=== PATIENT | female | born 1970 | race Caucasian/White ===

== ENCOUNTER 2019-12-15 16:14 | Inpatient (IN) | payer OTHER ==
--- NOTE | 2019-12-15 17:16 | HP ---
COWS - Scale Resting Pulse: 1= [place] 81-100 Sweatin=Flushed/Facial Moisture Restless Observation: 3= Extraneous Movement Pupil Size: 1= Pupils >than Normal Bone or Joint Aches: 2= Severe Diffuse Aches Runny Nose/ Eye Tearin= Runny Nose/Eyes GI Upset > 30mins: 2= Nausea/Diarrhea (diarrhea x 3) Tremor Observation: 2= Slight Tremor Visible Yawning Observation: 0= None Anxiety or Irritability: 2=Irritable/Anxious Goose Flesh Skin: 0=Smooth Skin COWS Score: 17 CIWA Score Nausea/Vomitin Muscle Tremors: 3 Anxiety: 3 Agitation: 4-Moderately Restless Paroxysmal Sweats: 2 Orientation: 0-Oriented Tacttile Disturbances: 0-None Auditory Disturbances: 0-None Visual Disturbances: 0-None Headache: 3-Moderate CIWA-Ar Total Score: 17 - Admission Criteria [facility]ASAS Guidelines: Admission for Medically Managed Detox: Requires at least one of the followin. CIWA greater than 12 2. Seizures within the past 24 hours 3. Delirium tremens within the past 24 hours 4. Hallucinations within the past 24 hours 5. Acute intervention needed for co occurring medical disorder 6. Acute intervention needed for co occurring psychiatric disorder 7. Severe withdrawal that cannot be handled at a lower level of care (continued vomiting, continued diarrhea, abnormal vital signs) requiring intravenous medication and/or fluids 8. Admission ROS [facility] Chief Complaint: Heroin, Alcohol and Benzo. withdrawal symptoms Allergies/Adverse Reactions: Allergies Allergy/AdvReac Type Severity Reaction Status Date / Time No Known Allergies Allergy Verified 12/15/19 18:10 History of Present Illness: 49 years old female with over 20 years of heroin dependence, 15 years of intermittent benzo. dependence (daily use in the last 6 months) and 14 years of alcohol dependence is seeking admission to detox. Patient reports a year of longest period of sobriety. She has medical history of chronic back pain, GERD, Raynaud disease, scoliosis and psych. history of anxiety, depression and PTSD. She denies suicide attempt/ suicidal ideation at this time. 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 She reports that her last detox was at [facility] [place] Data Detail Level: Extended View Confidential Drug Utilization Report Search Terms: magnolia chinchilla, 1970 Search Date: 12/15/2019 17:11:14 PM The Drug Utilization Report below displays all of the controlled substance prescriptions, if any, that your patient has filled in the last twelve months. The information displayed on this report is compiled from pharmacy submissions to the Department, and accurately reflects the information as submitted by the pharmacies. There are no results for the search terms that you entered. Exam Limitations: No Limitations - Ebola screening Have you traveled outside of the country in the last 21 days: No Have you had contact with anyone from an Ebola affected area: No Do you have a fever: No - Review of Systems Constitutional: Chills, Loss of Appetite, Malaise, Night Sweats, Changes in sleep EENT: reports: Nose Congestion, Other (difficulty hearing - left ear) Respiratory: reports: No Symptoms reported Cardiac: reports: No Symptoms Reported GI: reports: No Symptoms Reported : reports: No Symptoms Reported Musculoskeletal: reports: Back Pain, Muscle Pain Integumentary: reports: Dryness, Flushing Neuro: reports: Headache, Tremors Endocrine: reports: No Symptoms Reported Hematology: reports: No Symptoms Reported Psychiatric: reports: Mood/Affect Appropiate, Orientated x3, Anxious, Depressed Other Systems: Reviewed and Negative Patient History - Patient Medical History Hx Anemia: No Hx Asthma: No Hx Chronic Obstructive Pulmonary Disease (COPD): No Hx Cancer: No Hx Cardiac Disorders: No Hx Congestive Heart Failure: No Hx Hypertension: No Hx Hypercholesterolemia: No Hx Pacemaker: No HX Cerebrovascular Accident: No Hx Seizures: Yes (Alcohol related seizures. Not on medications) Hx Dementia: No Hx Diabetes: No Hx Gastrointestinal Disorders: Yes (GERD) Hx Liver Disease: No Hx Genitourinary Disorders: No Hx Sexually Transmitted Disorders: No Hx Renal Disease (ESRD): No Hx Thyroid Disease: No Hx Human Immunodeficiency Virus (HIV): No (Negative - requests testing) Hx Hepatitis C: No Hx Depression: Yes Hx Suicide Attempt: No (Denies suicide attempt/suicidal ideation at this time) Hx Bipolar Disorder: No Hx Schizophrenia: No Other Medical History: Raynaud's disease, chronic back pain - Patient Surgical History Past Surgical History: No - PPD History Previous Implant?: Yes Documented Results: Negative w/o proof Implanted On Prior [facility] Admission?: No PPD to be Administered?: Yes - Reproductive History Patient is a Female of Child Bearing Age (11 -55 yrs old): Yes Last Menstrual Period: 11/25/19 - Smoking Cessation Smoking history: Current every day smoker Have you smoked in the past 12 months: Yes Aproximately how many cigarettes per day: 20 Hx Chewing Tobacco Use: Yes Initiated information on smoking cessation: No 'Breaking Loose' booklet given: 12/15/19 - Substance & Tx. History Hx Alcohol Use: Yes Hx Substance Use: Yes Substance Use Type: Alcohol, Cocaine, Heroin, Marijuana, Opiates Hx Substance Use [place]: [place] [place] - Substances abused Heroin Substance route: Injection Frequency: Daily Amount used: 20 bags Age of first use: 25 Date of last use: 12/14/19 Alprazolam (Xanax) Substance route: Oral Frequency: Daily Amount used: 4 to 8 mg Age of first use: 34 Date of last use: 12/14/19 Alcohol Substance route: Oral Frequency: Daily Amount used: 1 to 2 pints of new. Age of first use: 13 Date of last use: 12/15/19 Admission Physical Exam [facility] - Physical General Appearance: Yes: Moderate Distress, Tremorous, Irritable, Anxious HEENTM: Yes: Nasal Congestion, Other (difficulty hearing- left ear) Respiratory: Yes: Lungs Clear, Normal Breath Sounds, No Respiratory Distress Neck: Yes: Within Normal Limits Breast: Yes: Breast Exam Deferred Cardiology: Yes: Tachycardia Abdominal: Yes: Normal Bowel Sounds, Soft Genitourinary: Yes: Within Normal Limits Back: Yes: Normal Inspection Musculoskeletal: Yes: Within Normal Limits Extremities: Yes: Normal Inspection Neurological: Yes: Within Normal Limits Integumentary: Yes: Clammy Lymphatic: Yes: Within Normal Limits - Diagnostic (1) Alcohol dependence with withdrawal, uncomplicated Current Visit: Yes Status: Acute (2) Raynauds disease Current Visit: Yes Status: Chronic Qualifiers: Raynaud?s-associated gangrene presence: without gangrene Qualified Code(s) : I73.00 - Raynaud's syndrome without gangrene (3) Left ear hearing loss Current Visit: Yes Status: Chronic Qualifiers: Hearing loss type: unspecified Qualified Code(s): H91.92 - Unspecified hearing loss, left ear (4) Alcohol related seizure Current Visit: Yes Status: Chronic (5) Depression Current Visit: Yes Status: Chronic Qualifiers: Depression Type: unspecified Qualified Code(s): F32.9 - Major depressive disorder, single episode, unspecified (6) Anxiety Current Visit: Yes Status: Chronic (7) Chronic back pain Current Visit: Yes Status: Chronic Qualifiers: Back pain location: back pain in unspecified location Back pain laterality : unspecified Qualified Code(s): M54.9 - Dorsalgia, unspecified; G89.29 - Other chronic pain (8) Scoliosis Current Visit: Yes Status: Chronic Qualifiers: Scoliosis type: unspecified scoliosis Spinal region: unspecified Qualified Code(s): M41.9 - Scoliosis, unspecified Cleared for Admission S - Detox or Rehab [facility] Level of Care: Medically Managed Detox Regimen/Protocol: Methadone/Valium Claeared for Rehab Admission: No Inpatient Rehab Admission - Rehab Decision to Admit Inpatient rehab admission?: No
--- NOTE | 2019-12-15 17:16 | BHS.RME ---
Substance Use & Tx History - Last Treatment Where was last treatment: Detox COWS - Scale Resting Pulse: 1= [place] 81-100 Sweatin=Flushed/Facial Moisture Restless Observation: 3= Extraneous Movement Pupil Size: 1= Pupils >than Normal Bone or Joint Aches: 2= Severe Diffuse Aches Runny Nose/ Eye Tearin= Runny Nose/Eyes GI Upset > 30mins: 2= Nausea/Diarrhea (diarrhea x 3) Tremor Observation: 2= Slight Tremor Visible Yawning Observation: 0= None Anxiety or Irritability: 2=Irritable/Anxious Goose Flesh Skin: 0=Smooth Skin COWS Score: 17 CIWA Nausea/Vomitin Muscle Tremors: 3 Anxiety: 3 Agitation: 4-Moderately Restless Paroxysmal Sweats: 2 Orientation: 0-Oriented Tacttile Disturbances: 0-None Auditory Disturbances: 0-None Visual Disturbances: 0-None Headache: 3-Moderate CIWA-Ar Total Score: 17
[2019-12-15 18:23] VITALS: BMI 22.1
[2019-12-15] MEDS ORDERED: MELATONIN 5 MG TABLETS PO PRN (18:55)
[2019-12-15] MEDS ORDERED: NICOTINE POLACRILEX 2 MG GUM BUC PRN (18:55)
[2019-12-15] MEDS ORDERED: BISMUTH SUBSALICYLATE 524 MG/30 ML UD PO PRN (18:55)
[2019-12-15] MEDS ORDERED: MAG HYDROX/AL HYDROX/SIMETH 30 ML UNIT-DOSE CUP PO PRN (18:55)
[2019-12-15] MEDS ORDERED: ACETAMINOPHEN 325 MG TABLET (FP) PO PRN ×2 (18:55)
[2019-12-15] MEDS ORDERED: MAGNESIUM CITRATE 300 ML BOTTLE PO PRN (18:55)
[2019-12-15] MEDS ORDERED: MENTHOL/PHENOL 1 EACH UD MM PRN (18:55)
[2019-12-15] MEDS ORDERED: MAGNESIUM HYDROX 2400MG/30ML ORAL SUSPENSION 30 ML CUP PO PRN (18:55)
[2019-12-15] MEDS ORDERED: METHADONE HCL 10 MG TABLET (FOR DETOX USE ONLY) PO ONE (19:30)
[2019-12-15] MEDS: cloNIDine HCL 0.1 MG TABLET PO PRN (20:33)
[2019-12-15] MEDS: diazePAM 5 MG TABLET PO SCH (22:11)
[2019-12-15] MEDS: THIAMINE HCL 100 MG TABLET (FP) PO SCH (22:11)
[2019-12-15] MEDS: CARBAMIDE PEROXIDE 6.5% OTIC 15 ML BOTTLE AS SCH (22:13)
[2019-12-16] MEDS: diazePAM 5 MG TABLET PO PRN ×2 (03:00→15:34)
[2019-12-16] MEDS: diazePAM 5 MG TABLET PO SCH ×3 (07:05→22:42)
[2019-12-16] MEDS ORDERED: METHADONE HCL 5 MG TABLET (FOR DETOX USE ONLY) ONE (09:05)
[2019-12-16] MEDS ORDERED: METHADONE HCL 10 MG TABLET (FOR DETOX USE ONLY) ONE (09:06)
[2019-12-16] MEDS ORDERED: METHADONE (DETOX) 20 MG, METHADONE (DETOX) 5 MG PO ONE (10:00)
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
[2019-12-16] MEDS: CARBAMIDE PEROXIDE 6.5% OTIC 15 ML BOTTLE AS SCH ×2 (10:26→22:42)
[2019-12-16] MEDS: NICOTINE 21 MG/24 HOURS TOPICAL PATCH TD SCH (10:27)
[2019-12-16] MEDS: PRENATAL VITAMINS W/ FOLIC ACID TABLET (FP) PO SCH (10:28)
[2019-12-16 11:19] LABS: HEMATOCRIT 33.4 % (32.4-45.2); HEMOGLOBIN 10.9 GM/dL (10.7-15.3); MCH 26.1 pg (25.7-33.7); MCHC 32.7 g/dl (32.0-36.0); MEAN CELL VOLUME 79.8 fl (80-96); MEAN PLT VOLUME 8.9 fl (7.5-11.1); PLATELET COUNT 297 K/MM3 (134-434); RBC 4.18 M/mm3 (3.60-5.2); RDW 16.8 % (11.6-15.6); WHITE BLOOD COUNT 10.3 K/mm3 (4.0-10.0)
[2019-12-16 11:22] LABS: ALBUMIN 3.3 g/dl (3.4-5.0); BILIRUBIN,TOTAL 0.2 mg/dL (0.2-1); CALCIUM 7.9 mg/dL (8.5-10.1); CREATININE 0.7 mg/dL (0.55-1.3); POTASSIUM 4.3 mmol/L (3.5-5.1)
--- NOTE | 2019-12-16 12:52 | EKG ---
Test Reason : Blood Pressure : / mmHG Vent. Rate : 076 BPM Atrial Rate : 076 BPM P-R Int : 152 ms QRS Dur : 086 ms QT Int : 388 ms P-R-T Axes : 072 079 058 degrees QTc Int : 436 ms NORMAL SINUS RHYTHM NORMAL ECG NO PREVIOUS ECGS AVAILABLE Confirmed by BEKA DYKES MD ([id number]) on 12/16/2019 12:52:17 PM Referred By: Confirmed By:BEKA DYKES MD
[2019-12-16] MEDS: IBUPROFEN 400 MG TABLET (FP) PO PRN ×2 (15:31→22:58)
[2019-12-16] MEDS: cloNIDine HCL 0.1 MG TABLET PO PRN (18:46)
[2019-12-16] MEDS: METHOCARBAMOL 500 MG TABLET PO PRN (22:42)
[2019-12-16] MEDS: THIAMINE HCL 100 MG TABLET (FP) PO SCH (22:42)
[2019-12-16] MEDS: SUVOREXANT 10 MG TABLET PO PRN (22:58)
[2019-12-17] MEDS: diazePAM 5 MG TABLET PO PRN ×4 (03:35→23:19)
[2019-12-17] MEDS: diazePAM 5 MG TABLET PO SCH ×2 (05:48→18:14)
[2019-12-17] MEDS ORDERED: METHADONE HCL 10 MG TABLET (FOR DETOX USE ONLY) PO ONE (10:00)
[2019-12-17] MEDS: METHOCARBAMOL 500 MG TABLET PO PRN (10:38)
[2019-12-17] MEDS: CARBAMIDE PEROXIDE 6.5% OTIC 15 ML BOTTLE AS SCH ×2 (10:38→22:24)
[2019-12-17] MEDS: PRENATAL VITAMINS W/ FOLIC ACID TABLET (FP) PO SCH (10:39)
[2019-12-17] MEDS: NICOTINE 21 MG/24 HOURS TOPICAL PATCH TD SCH (10:39)
--- NOTE | 2019-12-17 15:13 | PN ---
[facility] CIWA - CIWA Score Nausea/Vomitin-No Nausea/No Vomiting Muscle Tremors: 4-Moderate,w/Arms Extend Anxiety: 5 Agitation: 4-Moderately Restless Paroxysmal Sweats: No Perspiration Orientation: 0-Oriented Tacttile Disturbances: 0-None Auditory Disturbances: 0-None Visual Disturbances: 0-None Headache: 0-None Present CIWA-Ar Total Score: 13 S COWS - Scale Resting Pulse: 0= [place] 80 or Below Sweatin= No chills or Flushing Restless Observation: 1= Difficult to Sit Still Pupil Size: 0= Normal to Room Light Bone or Joint Aches: 1= Mild Discomfort Runny Nose/ Eye Tearin= None GI Upset > 30mins: 0= None Tremor Observation of Outstretched Hands: 2= Slight Tremor Visible Yawning Observation: 1= 1-2x During Session Anxiety or Irritability: 2=Irritable/Anxious Goose Flesh Skin: 3=Piloerection COWS Score: 10 S Progress Note (SOAP) Subjective: Anxious, Tremors, Interrupted Sleep, Body Aches. Objective: PATIENT A & O X 3, OBSERVED AMBULATING ON DETOX UNIT UNASSISTED. IN NO ACUTE DISTRESS. 12/17/19 15:11 Vital Signs Temperature 99.0 F 12/17/19 08:39 Pulse Rate 73 12/17/19 08:39 Respiratory Rate 16 12/17/19 08:39 Blood Pressure 108/63 12/17/19 08:39 O2 Sat by Pulse Oximetry (%) Laboratory Tests 12/16/19 12/16/19 12/16/19 08:00 08:00 08:00 WBC 10.3 H RBC 4.18 Hgb 10.9 Hct 33.4 MCV 79.8 L MCH 26.1 MCHC 32.7 RDW 16.8 H Plt Count 297 MPV 8.9 Sodium 140 Potassium 4.3 Chloride 108 H Carbon Dioxide 27 Anion Gap 5 L BUN 16.0 Creatinine 0.7 Est GFR (CKD-EPI)AfAm 117.09 Est GFR (CKD-EPI)NonAf 101.02 Random Glucose 88 Calcium 7.9 L Total Bilirubin 0.2 AST 16 ALT 17 Alkaline Phosphatase 104 Total Protein 7.0 Albumin 3.3 L RPR Titer Nonreactive LABS NOTED. Assessment: 12/17/19 15:11 WITHDRAWAL SYMPTOMS. HYPOCALCEMIA. Plan: CONTINUE DETOX. OSCAL, 500 MG ORALLY BID FOR LOW CA LEVEL NOTED ON DETOX ADMISSION LABORATORY ASSESSMENT.
[2019-12-17] MEDS: cloNIDine HCL 0.1 MG TABLET PO PRN (20:13)
[2019-12-17] MEDS ORDERED: CALCIUM 500MG/VIT-D 200 UNITS COMBO TABLET (FP) PO SCH (22:00)
[2019-12-17] MEDS: THIAMINE HCL 100 MG TABLET (FP) PO SCH (22:25)
[2019-12-17] MEDS: SUVOREXANT 10 MG TABLET PO PRN (22:28)
[2019-12-18] MEDS ORDERED: diazePAM 5 MG TABLET PO ONE (06:00)
[2019-12-18] MEDS: IBUPROFEN 400 MG TABLET (FP) PO PRN (07:41)
[2019-12-18 09:30] VITALS: BP 121/52; PULSE 103; TEMP 97.8
[2019-12-18] MEDS ORDERED: METHADONE (DETOX) 10 MG, METHADONE (DETOX) 5 MG PO ONE (10:00)
--- NOTE | 2019-12-18 16:49 | DS ---
[facility] Detox Discharge Summary Admission Date: 12/15/19 Discharge Date: 12/18/19 - History Present History: Alcohol Dependence, Opioid Dependence, Sedative Dependence Additional Comments: Patient demanded to leave AMA because her so called boyfriend (Poncho Hopper) was discharged today and she wanted him to stay. Patient left despite encouragement from staff to complete detox. Patient was loud, irritable and using lots of profanity towards staff. Instructed to call [phone] NED if sick or withdrawal sxs and to see her PCP within 3 days. Patient left the unit in stable condition. Pertinent Past History: GERD Chronic back pain Alcohol related seizure disorder Nicotine dependence - Physical Exam Results Vital Signs: Vital Signs Temperature 97.8 F 12/18/19 08:17 Pulse Rate 103 H 12/18/19 08:17 Respiratory Rate 19 12/18/19 08:17 Blood Pressure 121/52 L 12/18/19 08:17 O2 Sat by Pulse Oximetry (%) Pertinent Admission Physical Exam Findings: Withdrawal sxs Laboratory Tests 12/16/19 12/16/19 12/16/19 08:00 08:00 08:00 WBC 10.3 H RBC 4.18 Hgb 10.9 Hct 33.4 MCV 79.8 L MCH 26.1 MCHC 32.7 RDW 16.8 H Plt Count 297 MPV 8.9 Sodium 140 Potassium 4.3 Chloride 108 H Carbon Dioxide 27 Anion Gap 5 L BUN 16.0 Creatinine 0.7 Est GFR (CKD-EPI)AfAm 117.09 Est GFR (CKD-EPI)NonAf 101.02 Random Glucose 88 Calcium 7.9 L Total Bilirubin 0.2 AST 16 ALT 17 Alkaline Phosphatase 104 Total Protein 7.0 Albumin 3.3 L RPR Titer Nonreactive HIV 1&2 Antibody Screen HIV P24 Antigen 12/18/19 05:50 WBC RBC Hgb Hct MCV MCH MCHC RDW Plt Count MPV Sodium Potassium Chloride Carbon Dioxide Anion Gap BUN Creatinine Est GFR (CKD-EPI)AfAm Est GFR (CKD-EPI)NonAf Random Glucose Calcium Total Bilirubin AST ALT Alkaline Phosphatase Total Protein Albumin RPR Titer HIV 1&2 Antibody Screen Negative HIV P24 Antigen Negative Labs reviewed: instructed to follow up with PCP for all abnormal lab results - Medication Discharge Medications: Ambulatory Orders NK [No Known Home Medication] 12/15/19 - Diagnosis (1) GERD (gastroesophageal reflux disease) Current Visit: Yes Status: Chronic (2) Alcohol dependence with withdrawal, uncomplicated Current Visit: Yes Status: Acute (3) Sedative, hypnotic or anxiolytic dependence, uncomplicated Current Visit: Yes Status: Acute (4) Uncomplicated opioid dependence Current Visit: Yes Status: Acute (5) Anxiety Current Visit: Yes Status: Chronic (6) Chronic back pain Current Visit: Yes Status: Chronic Qualifiers: Back pain location: back pain in unspecified location Back pain laterality : unspecified Qualified Code(s): M54.9 - Dorsalgia, unspecified; G89.29 - Other chronic pain (7) Depression Current Visit: Yes Status: Chronic Qualifiers: Depression Type: unspecified Qualified Code(s): F32.9 - Major depressive disorder, single episode, unspecified (8) Nicotine dependence Current Visit: Yes Status: Chronic (9) PTSD (post-traumatic stress disorder) Current Visit: Yes Status: Chronic - AMA Did Patient Leave Against Medical Advice: Yes (Instructed to call 911 NED if sick/withdrawal sxs)
[2019-12-19] MEDS ORDERED: METHADONE HCL 10 MG TABLET (FOR DETOX USE ONLY) PO ONE (10:00)
[2019-12-20] MEDS ORDERED: METHADONE HCL 5 MG TABLET (FOR DETOX USE ONLY) PO ONE (06:00)
== END 2019-12-18 09:23 | disposition left against medical advice (07) | DRG 770 ==
LOC: YASAS 16:14 → Y6N 19:12
PROVIDERS: ADMIT Allergy & Immunology; ATTEND Allergy & Immunology
PROC: HZ2ZZZZ Detoxification Services for Substance Abuse Treatment (ICD-10-PCS; principal; 2019-12-15)
DX: F10.230 Alcohol dependence with withdrawal, uncomplicated (principal); F11.20 Opioid dependence, uncomplicated; F13.230 Sedative, hypnotic or anxiolytic dependence with withdrawal, uncomplicated; F17.210 Nicotine dependence, cigarettes, uncomplicated; F19.24 Other psychoactive substance dependence with psychoactive substance-induced mood disorder; F19.282 Other psychoactive substance dependence with psychoactive substance-induced sleep disorder; F41.9 Anxiety disorder, unspecified; F32.9 Major depressive disorder, single episode, unspecified; F43.10 Post-traumatic stress disorder, unspecified; K21.9 Gastro-esophageal reflux disease without esophagitis; M54.89 Other dorsalgia; G40.509 Epileptic seizures related to external causes, not intractable, without status epilepticus; H91.92 Unspecified hearing loss, left ear; E83.51 Hypocalcemia; I73.00 Raynaud's syndrome without gangrene; M41.9 Scoliosis, unspecified
CPT/HCPCS: 36415; 80053; 81025; 85027; 86593; 86803; 87389; 93005; 93010; J0735

== ENCOUNTER 2020-06-28 15:29 | Inpatient (IN) | payer OTHER ==
--- NOTE | 2020-06-28 16:04 | BHS.RME ---
Substance Use & Tx History - Substance Use History Alcohol Substance amount: 2-3 bottles wine Frequency of use: Daily Substance route: Oral Date of Last Use: 06/28/20 Heroin Substance amount: 15-20 bags Frequency of use: Daily Substance route: Injection (ex: intravenous or skin popping) Date of Last Use: 06/27/20 Cocaine-Crack Substance amount: $30 Frequency of use: Daily Substance route: Smoking Date of Last Use: 06/27/20 Xanax Substance amount: 2mg - 3 tabs Frequency of use: Daily Substance route: Oral Date of Last Use: 06/27/20 Nicotine Substance amount: 1/2 pack Frequency of use: Daily Substance route: Smoking Date of Last Use: 06/28/20 Physical/Psych/Mental Status - Behavior General Behavior: Increased activity (restlessness, agitation) Eye Contact: Normal - Cooperativeness Cooperativeness: Cooperative - Thinking Thought Processes: Tight, Logical, Goal Directed - Physical Health Problems Is patient presently having any pain?: No Does patient presently have any injuries (include location): No Does patient currently have a fever: No Is patient : No COWS - Scale Resting Pulse: 2= [place] [id number] Sweatin= Chills/Flushing Restless Observation: 3= Extraneous Movement Pupil Size: 1= Pupils >than Normal Bone or Joint Aches: 2= Severe Diffuse Aches Runny Nose/ Eye Tearin= Runny Nose/Eyes GI Upset > 30mins: 1= Stomach Cramp Tremor Observation: 1= Tremor [place], Not Seen Yawning Observation: 1= 1-2x During Session Anxiety or Irritability: 1=Feels Anxious/Irritable Goose Flesh Skin: 3=Piloerection COWS Score: 18 CIWA Nausea/Vomitin-No Nausea/No Vomiting Muscle Tremors: 3 Anxiety: 4-Mod. Anxious/Guarded Agitation: 4-Moderately Restless Paroxysmal Sweats: 4-Forehead w/Sweat Beads Orientation: 0-Oriented Tacttile Disturbances: 0-None Auditory Disturbances: 7-Continuous Hallucination Visual Disturbances: 1-Very Mild Sensitivity Headache: 1-Very Mild CIWA-Ar Total Score: 24
[2020-06-28 17:50] VITALS: BMI 25.1
--- NOTE | 2020-06-28 18:35 | HP ---
COWS - Scale Resting Pulse: 2= [place] 101-120 Sweatin=Flushed/Facial Moisture Restless Observation: 1= Difficult to Sit Still Pupil Size: 1= Pupils >than Normal Bone or Joint Aches: 4=Acute Joint/Muscle Pain Runny Nose/ Eye Tearin= Runny Nose/Eyes GI Upset > 30mins: 1= Stomach Cramp Tremor Observation: 2= Slight Tremor Visible Yawning Observation: 1= 1-2x During Session Anxiety or Irritability: 2=Irritable/Anxious Goose Flesh Skin: 3=Piloerection COWS Score: 21 CIWA Score Nausea/Vomitin Muscle Tremors: 3 Anxiety: 4-Mod. Anxious/Guarded Agitation: 4-Moderately Restless Paroxysmal Sweats: 2 Orientation: 0-Oriented Tacttile Disturbances: 0-None Auditory Disturbances: 0-None Visual Disturbances: 1-Very Mild Sensitivity Headache: 2-Mild CIWA-Ar Total Score: 18 - Admission Criteria OASAS Guidelines: Admission for Medically Managed Detox: Requires at least one of the followin. CIWA greater than 12 2. Seizures within the past 24 hours 3. Delirium tremens within the past 24 hours 4. Hallucinations within the past 24 hours 5. Acute intervention needed for co occurring medical disorder 6. Acute intervention needed for co occurring psychiatric disorder 7. Severe withdrawal that cannot be handled at a lower level of care (continued vomiting, continued diarrhea, abnormal vital signs) requiring intravenous medication and/or fluids 8. Admitting History and Physical - Past Medical History ...LMP: 11/25/19 - Smoking History Smoking history: Current every day smoker Have you smoked in the past 12 months: Yes Aproximately how many cigarettes per day: 20 - Alcohol/Substance Use Hx Alcohol Use: Yes Admission [facility] Chief Complaint: Alcohol and heroin withdrawal symptoms Allergies/Adverse Reactions: Allergies Allergy/AdvReac Type Severity Reaction Status Date / Time No Known Allergies Allergy Verified 06/28/20 18:53 History of Present Illness: 49 years old female with over 20 years of heroin dependence, 15 years of intermittent benzo. dependence (daily use in the last 6 months) and 14 years of alcohol dependence is seeking admission to detox. Patient's last admission was for the period 12/15/2019 - 12/18/2019 and she had left against medical advice. Patient promised to complete this admission and signed the treatment consent. She uses 2 bottles of wine, 15-20 bags of heroin and 6mg Xanax daily. She has medical history of chronic back pain, GERD, Raynaud's disease, scoliosis and psych. history of anxiety, depression and PTSD. She denies suicide attempt / suicidal ideation at this time. 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 She is unemployed, homeless and denies legal issues. Exam Limitations: Clinical Condition (acute withdrawal symptoms) - Ebola screening Have you traveled outside of the country in the last 21 days: No Have you had contact with anyone from an Ebola affected area: No Have you been sick,other than usual withdrawal symptoms: No Do you have a fever: No - Review of Systems Constitutional: Chills, Loss of Appetite, Malaise, Night Sweats, Changes in sleep EENT: reports: Other (runny nose) Respiratory: reports: No Symptoms reported Cardiac: reports: No Symptoms Reported GI: reports: Poor Appetite, Poor Fluid Intake, Abdominal cramping : reports: No Symptoms Reported Musculoskeletal: reports: Back Pain Integumentary: reports: Bruising (both legs), Dryness, Flushing Neuro: reports: Tremors Endocrine: reports: No Symptoms Reported Hematology: reports: No Symptoms Reported Psychiatric: reports: Orientated x3, Agitated, Anxious, Depressed Other Systems: Reviewed and Negative Patient History - Patient Medical History Hx Anemia: No Hx Asthma: No Hx Chronic Obstructive Pulmonary Disease (COPD): No Hx Cancer: No Hx Cardiac Disorders: No Hx Congestive Heart Failure: No Hx Hypertension: No Hx Hypercholesterolemia: No Hx Pacemaker: No HX Cerebrovascular Accident: No Hx Seizures: Yes (Alcohol related seizures. Not on medications) Hx Dementia: No Hx Diabetes: No Hx Gastrointestinal Disorders: Yes (GERD) Hx Liver Disease: No Hx Genitourinary Disorders: No Hx Sexually Transmitted Disorders: No Hx Renal Disease (ESRD): No Hx Thyroid Disease: No Hx Human Immunodeficiency Virus (HIV): No (Negative - requests testing) Hx Hepatitis C: No Hx Depression: Yes (+ Anxiety +PTSD) Hx Suicide Attempt: No (Denies suicide attempt/suicidal ideation at this time) Hx Bipolar Disorder: No Hx Schizophrenia: No Other Medical History: Chronic back pain, RAynaud's disease, scoliosis - Patient Surgical History Past Surgical History: No Hx Neurologic Surgery: No Hx Cataract Extraction: No Hx Cardiac Surgery: No Hx Lung Surgery: No Hx Abdominal Surgery: No Hx Appendectomy: No Hx Cholecystectomy: No Hx Genitourinary Surgery: No Hx Orthopedic Surgery: No Other Surgical History: tonsillectomy/adenoidectomy 11 y/o, ear surgery 7/t0 7 y/o Anesthesia Reaction: No - PPD History Previous Implant?: Yes Documented Results: Positive w/proof Implanted On Prior [facility] Admission?: Yes Date: 12/17/19 PPD to be Administered?: No - Reproductive History Patient is a Female of Child Bearing Age (11 -55 yrs old): No Last Menstrual Period: 06/14/20 Patient : No - Smoking Cessation Smoking history: Current every day smoker Have you smoked in the past 12 months: Yes Aproximately how many cigarettes per day: 10 Hx Chewing Tobacco Use: No Initiated information on smoking cessation: Yes 'Breaking Loose' booklet given: 06/28/20 - Substance & Tx. History Hx Alcohol Use: Yes Hx Substance Use: Yes Substance Use Type: Alcohol, Cocaine, Heroin, Opiates, Tranquilizers Hx Substance Use Treatment: No ([facility]) - Substances abused Alcohol Substance route: Oral Frequency: Daily Amount used: 2 big bottles of wine Age of first use: 13 Date of last use: 06/28/20 Heroin Substance route: Injection Frequency: Daily Amount used: 15-20 bags Age of first use: 25 Date of last use: 06/27/20 Alprazolam (Xanax) Substance route: Oral Frequency: Daily Amount used: 6mg Age of first use: 34 Date of last use: 06/27/20 Admission Physical Exam S - Vital Signs Vital Signs: Vital Signs - 24 hr 06/28/20 17:48 Temperature 97.7 F Pulse Rate 102 H Respiratory 17 Rate Blood Pressure 120/83 - Physical General Appearance: Yes: Severe Distress, Tremorous, Irritable, Sweating, Anxious HEENTM: Yes: Within Normal Limits Respiratory: Yes: Lungs Clear, Normal Breath Sounds, No Respiratory Distress Neck: Yes: Within Normal Limits Breast: Yes: Breast Exam Deferred Cardiology: Yes: Tachycardia Abdominal: Yes: Normal Bowel Sounds Back: Yes: Normal Inspection Musculoskeletal: Yes: Back pain, Muscle Pain Extremities: Yes: Tremors, Swelling (bilateral hands secondary to Raynaud's disease), Erythema (bilateral hands) Neurological: Yes: Within Normal Limits Integumentary: Yes: Erythema, Track Castillo (bilateral legs, bilateral hands) Lymphatic: Yes: Within Normal Limits - Diagnostic (1) Opioid dependence with withdrawal Current Visit: Yes Status: Acute (2) Alcohol dependence with withdrawal, uncomplicated Current Visit: Yes Status: Acute (3) Sedative, hypnotic or anxiolytic dependence, uncomplicated Current Visit: Yes Status: Acute (4) Anxiety Current Visit: Yes Status: Chronic (5) Chronic back pain Current Visit: Yes Status: Chronic Qualifiers: Back pain laterality: unspecified (6) Depression Current Visit: Yes Status: Chronic Qualifiers: Depression Type: unspecified Qualified Code(s): F32.9 - Major depressive disorder, single episode, unspecified (7) GERD (gastroesophageal reflux disease) Current Visit: Yes Status: Chronic (8) Nicotine dependence Current Visit: Yes Status: Chronic (9) PTSD (post-traumatic stress disorder) Current Visit: Yes Status: Chronic (10) Raynauds disease Current Visit: Yes Status: Chronic Qualifiers: Raynaud?s-associated gangrene presence: without gangrene Qualified Code(s): I73.00 - Raynaud's syndrome without gangrene (11) Scoliosis Current Visit: Yes Status: Chronic Qualifiers: Scoliosis type: unspecified scoliosis Spinal region: unspecified Qualified Code(s): M41.9 - Scoliosis, unspecified (12) Alcohol related seizure Current Visit: Yes Status: Chronic Cleared for Admission S - Detox or Rehab [facility] Level of Care: Medically Managed Detox Regimen/Protocol: Methadone/Librium Claeared for Rehab Admission: Yes Breathalyzer - Breathalyzer Breathalyzer: 0.047 Urine Drug Screen - Test Device Lot number: [id number] Expiration date: 05/22/22 - Control Is test valid?: Yes - Results Drug screen NEGATIVE: No Urine drug screen results: JACKY-Cocaine, FEN-Fentanyl, MOP-Opiates, MTD-Met hadone, BZO-Benzodiazepines Inpatient Rehab Admission - Rehab Decision to Admit Inpatient rehab admission?: No
[2020-06-28] MEDS ORDERED: ACETAMINOPHEN 325 MG TABLET (FP) PO PRN ×2 (18:55)
[2020-06-28] MEDS ORDERED: ONDANSETRON *ODT* 4 MG TABLET SL PRN (18:55)
[2020-06-28] MEDS ORDERED: MAG HYDROX/AL HYDROX/SIMETH 30 ML UNIT-DOSE CUP PO PRN (18:55)
[2020-06-28] MEDS ORDERED: BISMUTH SUBSALICYLATE 524 MG/30 ML UD PO PRN (18:55)
[2020-06-28] MEDS ORDERED: chlordiazePOXIDE HCL 25 MG CAPSULE PO PRN (18:55)
[2020-06-28] MEDS ORDERED: IBUPROFEN 400 MG TABLET (FP) PO PRN (18:55)
[2020-06-28] MEDS ORDERED: MAGNESIUM HYDROX 2400MG/30ML ORAL SUSPENSION 30 ML CUP PO PRN (18:55)
[2020-06-28] MEDS ORDERED: MENTHOL/PHENOL 1 EACH UD MM PRN (18:55)
[2020-06-28] MEDS ORDERED: MAGNESIUM CITRATE 300 ML BOTTLE PO PRN (18:55)
[2020-06-28] MEDS ORDERED: NICOTINE POLACRILEX 2 MG GUM BUC PRN (18:55)
[2020-06-28] MEDS ORDERED: METHADONE HCL 10 MG TABLET (FOR DETOX USE ONLY) PO ONE (19:30)
[2020-06-28] MEDS: cloNIDine HCL 0.1 MG TABLET PO PRN (20:44)
[2020-06-28] MEDS: chlordiazePOXIDE HCL 25 MG CAPSULE PO SCH ×2 (22:54→23:14)
[2020-06-28] MEDS: THIAMINE HCL 100 MG TABLET (FP) PO SCH ×2 (22:54→23:17)
[2020-06-28] MEDS ORDERED: MASKS NR ONE (23:11)
[2020-06-28] MEDS: MELATONIN 5 MG TABLETS PO SCH (23:15)
[2020-06-29] MEDS: chlordiazePOXIDE HCL 25 MG CAPSULE PO SCH (05:40)
--- NOTE | 2020-06-29 09:02 | EKG ---
Test Reason : Blood Pressure : / mmHG Vent. Rate : 074 BPM Atrial Rate : 074 BPM P-R Int : 152 ms QRS Dur : 088 ms QT Int : 390 ms P-R-T Axes : 077 081 059 degrees QTc Int : 432 ms NORMAL SINUS RHYTHM NORMAL ECG WHEN COMPARED WITH ECG OF 15-DEC-2019 19:14, NO SIGNIFICANT CHANGE WAS FOUND Confirmed by BEKA DYKES MD ([id number]) on 06/29/2020 9:02:16 AM Referred By: Confirmed By:BEKA DYKES MD
--- NOTE | 2020-06-29 09:39 | PN ---
S CIWA - CIWA Score Nausea/Vomitin-No Nausea/No Vomiting Muscle Tremors: 3 Anxiety: 3 Agitation: 2 Paroxysmal Sweats: 2 Orientation: 0-Oriented Tacttile Disturbances: 0-None Auditory Disturbances: 0-None Visual Disturbances: 0-None Headache: 3-Moderate CIWA-Ar Total Score: 13 S COWS - Scale Resting Pulse: 0= [place] 80 or Below Sweatin= Chills/Flushing Restless Observation: 1= Difficult to Sit Still Pupil Size: 0= Normal to Room Light Bone or Joint Aches: 1= Mild Discomfort Runny Nose/ Eye Tearin= None GI Upset > 30mins: 0= None Tremor Observation of Outstretched Hands: 0= None Yawning Observation: 0= None Anxiety or Irritability: 0= None Goose Flesh Skin: 0=Smooth Skin COWS Score: 3 S Progress Note (SOAP) Subjective: Patient is a 49 y/o female who is here for detox from heroin and alcohol. patient upset this morning stating she is very anxious, became tearful during examination. Objective: 06/29/20 09:37 Vital Signs Temperature 58 F L 06/29/20 06:20 Pulse Rate 58 L 06/29/20 06:20 Respiratory Rate 16 06/29/20 06:20 Blood Pressure 109/67 06/29/20 06:20 O2 Sat by Pulse Oximetry (%) 95 06/29/20 06:20 Physical Exam general: WNNL, awake, upset HEENT: hearing intact, normocephalic Neuro: ROM intact, gait unobserved skin: intact dry Home Medication List Medication Instructions Recorded Confirmed Type NK [No Known Home Medication] 12/15/19 06/28/20 History Active Medications Generic Name Dose Route Start Last Admin Trade Name Freq PRN Reason Stop Dose Admin Acetaminophen 650 mg 06/28/20 18:55 Tylenol - PO Q6H PRN PAIN LEVEL 4 - 6 Acetaminophen 650 mg 06/28/20 18:55 Tylenol - PO Q6H PRN FEVER Al Hydroxide/Mg Hydroxide 30 ml 06/28/20 18:55 Mylanta Oral Suspension - PO Q6H PRN DYSPEPSIA Bismuth Subsalicylate 524 mg 06/28/20 18:55 Pepto-Bismol - PO Q1H PRN DIARRHEA Clonidine 0.1 mg 06/28/20 18:55 06/28/20 20:44 Catapres - PO 06/30/20 23:59 0.1 mg Q4H PRN Administration Withdrawal Symptoms Diazepam 5 mg 06/29/20 11:00 Valium - PO 06/30/20 23:01 Q6H ALLA Diazepam 5 mg 07/01/20 06:00 Valium - PO 07/01/20 22:01 TID ALLA Diazepam 5 mg 07/02/20 06:00 Valium - PO 07/02/20 18:01 Q12H [facility] Diazepam 10 mg 06/29/20 09:34 Valium - PO 07/02/20 09:33 Q4H PRN WITHDRAWAL(CONT SUBST) Diazepam 5 mg 07/03/20 06:00 Valium - PO 07/03/20 06:01 ONCE ONE Eucalyptus/Menthol/Phenol/Sorbitol 1 each 06/28/20 18:55 Cepastat Lozenge - MM 07/04/20 18:55 Q4H PRN SORE THROAT Ibuprofen 400 mg 06/28/20 18:55 Motrin - PO Q6H PRN PAIN LEVEL 1 - 3 Magnesium Citrate 300 ml 06/28/20 18:55 Citroma - PO Q48H PRN CONSTIPATION Magnesium Hydroxide 30 ml 06/28/20 18:55 Milk Of Magnesia - PO PRN PRN CONSTIPATION Melatonin 5 mg 06/28/20 22:00 06/28/20 23:15 Melatonin PO 5 mg HS ALLA Administration Methadone HCl 5 mg 07/03/20 06:00 Dolophine - PO 07/03/20 06:01 ONCE@0600 ONE Methadone HCl 10 mg 07/02/20 10:00 Dolophine - PO 07/02/20 10:01 ONCE ONE Methadone HCl 20 mg 06/30/20 10:00 Dolophine - PO 06/30/20 10:01 ONCE ONE Methadone HCl 20 mg/ Methadone 25 mg 06/29/20 10:00 HCl 5 mg PO 06/29/20 10:01 ONCE ONE Methadone HCl 10 mg/ Methadone 15 mg 07/01/20 10:00 HCl 5 mg PO 07/01/20 10:01 ONCE ONE Methocarbamol 500 mg 06/28/20 18:55 Robaxin - PO 07/04/20 18:55 Q6H PRN MUSCLE SPASMS Nicotine 14 mg 06/29/20 10:00 Nicoderm Patch - TD DAILY ALLA Nicotine Polacrilex 2 mg 06/28/20 18:55 Nicorette Gum - BUC Q2H PRN NICOTINE REPLACEMENT RX Ondansetron HCl 4 mg 06/28/20 18:55 Zofran Odt - SL Q8H PRN Nausea/Vomiting Multivit/Folic Acid/Iron 1 tab 06/29/20 10:00 Vitamins (Sjr) - PO DAILY [facility] Thiamine HCl 100 mg 06/28/20 22:00 06/28/20 23:17 Vitamin B1 - PO 100 mg HS [facility] Administration Assessment: 06/29/20 09:37 1. heroin dependence with withdrawl 2. alcohol dependence with withdrawl 3. anxiety Plan: 1. Continue methadone detox protocol 2. patient started on Librium but states she does better with Valium, detox medication changed to Valium 3. f/u with psychiatrist today for anxiety
[2020-06-29] MEDS ORDERED: METHADONE HCL 5 MG TABLET (FOR DETOX USE ONLY) ONE (09:56)
[2020-06-29] MEDS ORDERED: METHADONE HCL 10 MG TABLET (FOR DETOX USE ONLY) ONE (09:56)
[2020-06-29] MEDS ORDERED: METHADONE (DETOX) 20 MG, METHADONE (DETOX) 5 MG PO ONE (10:00)
[2020-06-29 10:40] LABS: HEMATOCRIT 35.9 % (32.4-45.2); HEMOGLOBIN 11.9 GM/dL (10.7-15.3); MCH 30.5 pg (25.7-33.7); MCHC 33.1 g/dl (32.0-36.0); MEAN PLT VOLUME 8.1 fl (7.5-11.1); PLATELET COUNT 194 K/MM3 (134-434); RDW 13.9 % (11.6-15.6); WHITE BLOOD COUNT 5.1 K/mm3 (4.0-10.0)
[2020-06-29] MEDS: PRENATAL VITAMINS W/ FOLIC ACID TABLET (FP) PO SCH (10:51)
[2020-06-29] MEDS: diazePAM 5 MG TABLET PO SCH ×3 (10:55→22:25)
[2020-06-29] MEDS: NICOTINE 14 MG/24 HOURS TOPICAL PATCH TD SCH (10:57)
[2020-06-29 11:02] LABS: ALBUMIN 2.9 g/dl (3.4-5.0); BLOOD UREA NITROGEN 12.8 mg/dL (7-18); CALCIUM 8.6 mg/dL (8.5-10.1); POTASSIUM 3.9 mmol/L (3.5-5.1)
[2020-06-29 11:06] LABS: BILIRUBIN,TOTAL 0.3 mg/dL (0.2-1); CREATININE 0.6 mg/dL (0.55-1.3)
--- NOTE | 2020-06-29 13:02 | CONSULT ---
[facility] Psychiatric Consult - Data Date of interview: 06/29/20 Admission source: [facility] Identifying data: Revisit to [facility] and admission to [address] [place] [address] for this 49 y/o female self-referred for detoxification treatment. LUBA issues : alcohol, benzodiazepine (xanax), crack/cocaine, heroin, nicotine. Patient is single, no dependents, domiciled, unemployed and supported on welfare. Substance Abuse History: Discussed with the patient. LUBA profile as follows : Smoking history: Current every day smoker. Have you smoked in the past 12 months: Yes. Approximately how many cigarettes per day: 10. Hx Chewing Tobacco Use: No. Initiated information on smoking cessation: Yes. 'Breaking Loose' booklet given: 06/28/20. - Substance & Tx. History. Hx Alcohol Use: Yes. Hx Substance Use: Yes. Substance Use Type: Alcohol, Cocaine, Heroin, Opiates, Tranquilizers. Hx Substance Use Treatment: No ([facility]). Patient admits also to using crack/cocaine. History of prior LUBA treatment failures. - Substances abused. Alcohol. Substance route: Oral. Frequency: Daily. Amount used: 2 big bottles of wine. Age of first use: 13. Date of last use: 06/28/20. Heroin. Substance route: Injection. Frequency: Daily. Amount used: 15-20 bags. Age of first use: 25. Date of last use: 06/27/20. Alprazolam (Xanax). Substance route: Oral. Frequency: Daily. Amount used: 6mg. Age of first use: 34. Date of last use: 06/27/20. chronic back pain, GERD, scoliosis, raynaud's disease and history of alcohol related seizure. Smokes cigarettes 1 ppd. History of multiple LUBA treatment failures. Medical History: Medical profile is remarkable for chronic lumbar pain, GERD, scoliosis, Raynaud's disease and history of alcohol related seizures. No known allergies. Psychiatric History: Patient is a questionable historian as evidenced by her denial of psychiatric hospitalizations, OPD care or suicide attempts, which is in total contradiction with data on records at [facility] : " first psychiatric co ntact occurred more than 15 years ago when she started receiving treatment for MDD, Anxiety, PTSD by the staff psychiatrist at [facility], [place], operated by [facility]. Over the years, she reports seeing different providers and was tried on several medications including but not limited to SSRI(Prozac, Zoloft), Welbutrin, Benzodiazepine. Reports her most recent psychiatric treatment occurred while in residential treatment at [facility] 5 years ago and stopped taking medications 3.5 to 4 years ago. Reports her only psychiatric hospitalization was age 31 when she was admitted to [facility] for 3 weeks for alleged suicidal attempt via overdose on Xanax. Told short story writer that it was an accidental overdose and she was not trying to kill herself. She said that her mother found her unconscious with an empty pill bottle of Xanax by her side." End of imported report of 12/15/19 from a [facility] psychiatrist, Dr Sewell. In this interview, the patient also denies history of suicide attempts. Physical/Sexual Abuse/Trauma History: Patient denies. Additional Comment: Urine drug screen results: JACKY-Cocaine, FEN-Fentanyl, MOP- Opiates, MTD-Methadone, BZO-Benzodiazepines. Noted. Mental Status Exam - Mental Status Exam Alert and Oriented to: Time, Place Cognitive Function: Good Patient Appearance: Unkempt, Disheveled Mood: Angry (because her request to communicate with her fiance, now a patient on a different unit, was not immediately honored), Nervous, Irritable Affect: Labile Patient Behavior: Inappropriate (as evidenced by temper tantrums), Fatigued, Uncooperative Speech Pattern: Clear, Excessive Voice Loudness: Normal Thought Process: Goal Oriented Thought Disorder: Not Present Hallucinations: Denies Suicidal Ideation: Denies Homicidal Ideation: Denies Insight/Judgement: Poor Sleep: Fair Appetite: Good Gait/Station: Normal Psychiatric Findings - Problem List ([place] 1, 2,3) (1) Alcohol dependence with withdrawal, uncomplicated Current Visit: Yes Status: Acute (2) Opioid dependence with withdrawal Current Visit: Yes Status: Acute (3) Sedative, hypnotic or anxiolytic dependence, uncomplicated Current Visit: Yes Status: Chronic (4) Cocaine use disorder Current Visit: Yes Status: Chronic (5) Nicotine dependence Current Visit: Yes Status: Chronic (6) Substance induced mood disorder Current Visit: Yes Status: Chronic (7) History of posttraumatic stress disorder (PTSD) Current Visit: Yes Status: Chronic Comment: As per self-report. Not on medications. No contact with OPD care providers. (8) Non-compliance Current Visit: Yes Status: Chronic - Initial Treatment Plan Initial Treatment Plan: Psychoeducation. Patient is informed of unit rules and regulations regarding issues of confidentiality + telephone communications. Firm limits. Support. Detoxification. Observation.
[2020-06-29] MEDS: diazePAM 5 MG TABLET PO PRN (14:27)
[2020-06-29] MEDS: cloNIDine HCL 0.1 MG TABLET PO PRN ×2 (15:36→22:27)
[2020-06-29] MEDS: THIAMINE HCL 100 MG TABLET (FP) PO SCH (22:24)
[2020-06-29] MEDS: MELATONIN 5 MG TABLETS PO SCH (22:25)
[2020-06-30] MEDS ORDERED: chlordiazePOXIDE HCL 25 MG CAPSULE PO SCH (05:00)
[2020-06-30] MEDS: diazePAM 5 MG TABLET PO SCH ×4 (06:37→23:04)
[2020-06-30] MEDS: cloNIDine HCL 0.1 MG TABLET PO PRN ×3 (06:38→18:47)
[2020-06-30] MEDS ORDERED: METHADONE HCL 10 MG TABLET (FOR DETOX USE ONLY) PO ONE (10:00)
[2020-06-30] MEDS: NICOTINE 14 MG/24 HOURS TOPICAL PATCH TD SCH (11:03)
[2020-06-30] MEDS: PRENATAL VITAMINS W/ FOLIC ACID TABLET (FP) PO SCH (11:04)
--- NOTE | 2020-06-30 13:44 | PN ---
[facility] CIWA - CIWA Score Nausea/Vomitin-No Nausea/No Vomiting Muscle Tremors: None Anxiety: 3 Agitation: 1-Slight > Activity Paroxysmal Sweats: 3 Orientation: 0-Oriented Tacttile Disturbances: 0-None Auditory Disturbances: 0-None Visual Disturbances: 0-None Headache: 1-Very Mild CIWA-Ar Total Score: 8 BHS COWS - Scale Resting Pulse: 0= [place] 80 or Below Sweatin= No chills or Flushing Restless Observation: 1= Difficult to Sit Still Pupil Size: 0= Normal to Room Light Bone or Joint Aches: 2= Severe Diffuse Aches Runny Nose/ Eye Tearin= None GI Upset > 30mins: 0= None Tremor Observation of Outstretched Hands: 0= None Yawning Observation: 1= 1-2x During Session Anxiety or Irritability: 2=Irritable/Anxious Goose Flesh Skin: 0=Smooth Skin COWS Score: 6 BHS Progress Note (SOAP) Subjective: c/o sweats, anxiety, mild headache, and body aches. Objective: 06/30/20 13:43 Vital Signs 06/30/20 06/30/20 06:37 08:57 Temperature 96.8 F L 97.7 F Pulse Rate 20 L 18 L Respiratory 51 H 56 H Rate Blood Pressure 127/90 124/82 O2 Sat by Pulse 94 L Oximetry (%) Laboratory Last Values WBC 5.1 K/mm3 (4.0-10.0) 06/29/20 08:10 RBC 3.90 M/mm3 (3.60-5.2) 06/29/20 08:10 Hgb 11.9 GM/dL (10.7-15.3) 06/29/20 08:10 Hct 35.9 % (32.4-45.2) 06/29/20 08:10 MCV 92.0 fl (80-96) 06/29/20 08:10 MCH 30.5 pg (25.7-33.7) D 06/29/20 08:10 MCHC 33.1 g/dl (32.0-36.0) 06/29/20 08:10 RDW 13.9 % (11.6-15.6) D 06/29/20 08:10 Plt Count 194 K/MM3 (134-434) D 06/29/20 08:10 MPV 8.1 fl (7.5-11.1) 06/29/20 08:10 Sodium 141 mmol/L (136-145) 06/29/20 08:10 Potassium 3.9 mmol/L (3.5-5.1) 06/29/20 08:10 Chloride 105 mmol/L (98-107) 06/29/20 08:10 Carbon Dioxide 32 mmol/L (21-32) 06/29/20 08:10 Anion Gap 4 MMOL/L (8-16) L 06/29/20 08:10 BUN 12.8 mg/dL (7-18) 06/29/20 08:10 Creatinine 0.6 mg/dL (0.55-1.3) 06/29/20 08:10 Est GFR (CKD-EPI)AfAm 123.18 06/29/20 08:10 Est GFR (CKD-EPI)NonAf 106.28 06/29/20 08:10 Random Glucose 85 mg/dL (74-106) 06/29/20 08:10 Calcium 8.6 mg/dL (8.5-10.1) 06/29/20 08:10 Total Bilirubin 0.3 mg/dL (0.2-1) 06/29/20 08:10 AST 14 U/L (15-37) L 06/29/20 08:10 ALT 15 U/L (13-61) 06/29/20 08:10 Alkaline Phosphatase 83 U/L (45-117) 06/29/20 08:10 Total Protein 6.0 g/dl (6.4-8.2) L 06/29/20 08:10 Albumin 2.9 g/dl (3.4-5.0) L 06/29/20 08:10 POC Urine HCG, Qual Negative 06/28/20 17:25 Syphilis Serology Non-reactive (NONREACTIVE) 06/29/20 08:10 COVID-19 ([facility]) Not detected (Not Detected) 06/28/20 20:00 Labs noted. Assessment: 06/30/20 13:43 AOX3, in no acute respiratory distress. Full ROM, ambulating in the unit. Withdrawal symptoms. Plan: continue detox.
[2020-06-30] MEDS: MELATONIN 5 MG TABLETS PO SCH (23:04)
[2020-06-30] MEDS: THIAMINE HCL 100 MG TABLET (FP) PO SCH (23:04)
[2020-07-01] MEDS ORDERED: chlordiazePOXIDE HCL 10 MG CAPSULE PO PRN
[2020-07-01] MEDS: diazePAM 5 MG TABLET PO PRN ×3 (02:48→18:00)
[2020-07-01] MEDS ORDERED: chlordiazePOXIDE HCL 10 MG CAPSULE PO SCH (05:00)
[2020-07-01] MEDS: diazePAM 5 MG TABLET PO SCH ×3 (06:26→22:19)
[2020-07-01] MEDS ORDERED: METHADONE HCL 5 MG TABLET (FOR DETOX USE ONLY) ONE (09:12)
[2020-07-01] MEDS ORDERED: METHADONE HCL 10 MG TABLET (FOR DETOX USE ONLY) ONE (09:12)
--- NOTE | 2020-07-01 09:32 | PN ---
[facility] CIWA - CIWA Score Nausea/Vomitin-No Nausea/No Vomiting Muscle Tremors: 1-None Visible, but Kingsley Anxiety: 2 Agitation: 0-Normal Activity Paroxysmal Sweats: 1-Minimal Palms Moist Orientation: 0-Oriented Tacttile Disturbances: 0-None Auditory Disturbances: 0-None Visual Disturbances: 0-None Headache: 1-Very Mild CIWA-Ar Total Score: 5 BHS COWS - Scale Resting Pulse: 0= [place] 80 or Below Sweatin= No chills or Flushing Restless Observation: 0= Sits Still Pupil Size: 1= Pupils >than Normal Bone or Joint Aches: 1= Mild Discomfort Runny Nose/ Eye Tearin= None GI Upset > 30mins: 1= Stomach Cramp Tremor Observation of Outstretched Hands: 1= Tremor Kingsley, Not Seen Yawning Observation: 0= None Anxiety or Irritability: 1=Feels Anxious/Irritable Goose Flesh Skin: 0=Smooth Skin COWS Score: 5 S Progress Note (SOAP) Subjective: 49 years old female was admitted on 06/28/20 for alcohol benzo opiate withdrawal sx management 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 feels anxiousness restlessness due to long history of "anxiety" seen by psychiatrist no medical intervention ms chinchilla requests clonidine that helps by history clonidine 0.1 mg po q6h prn add vistaril 25 mg po prn Objective: 07/01/20 09:33 Vital Signs - 24 hr 06/30/20 06/30/20 06/30/20 12:57 17:08 20:59 Temperature 97.7 F 97.7 F 98.2 F Pulse Rate 17 L 17 L 17 L Respiratory 59 H 61 H 54 H Rate Blood Pressure 96/64 113/71 97/67 O2 Sat by Pulse 95 97 Oximetry (%) 07/01/20 06:19 Temperature 96.9 F L Pulse Rate 56 L Respiratory 18 Rate Blood Pressure 119/72 O2 Sat by Pulse 96 Oximetry (%) Laboratory Tests 06/28/20 06/28/20 06/29/20 17:25 20:00 08:10 WBC RBC Hgb Hct MCV MCH MCHC RDW Plt Count MPV Sodium Potassium Chloride Carbon Dioxide Anion Gap BUN Creatinine Est GFR (CKD-EPI)AfAm Est GFR (CKD-EPI)NonAf Random Glucose Calcium Total Bilirubin AST ALT Alkaline Phosphatase Total Protein Albumin POC Urine HCG, Qual Negative Syphilis Serology Non-reactive COVID-19 ([facility]) Not detected 06/29/20 06/29/20 08:10 08:10 WBC 5.1 RBC 3.90 Hgb 11.9 Hct 35.9 MCV 92.0 MCH 30.5 D MCHC 33.1 RDW 13.9 D Plt Count 194 D MPV 8.1 Sodium 141 Potassium 3.9 Chloride 105 Carbon Dioxide 32 Anion Gap 4 L BUN 12.8 Creatinine 0.6 Est GFR (CKD-EPI)AfAm 123.18 Est GFR (CKD-EPI)NonAf 106.28 Random Glucose 85 Calcium 8.6 Total Bilirubin 0.3 AST 14 L ALT 15 Alkaline Phosphatase 83 Total Protein 6.0 L Albumin 2.9 L POC Urine HCG, Qual Syphilis Serology COVID-19 ([facility]) lab noted Assessment: 07/01/20 09:34 alcohol benzo opiate withdrawal Plan: valium and methadone regiments
[2020-07-01] MEDS ORDERED: METHADONE (DETOX) 10 MG, METHADONE (DETOX) 5 MG PO ONE (10:00)
[2020-07-01] MEDS: cloNIDine HCL 0.1 MG TABLET PO PRN ×2 (10:54→23:37)
[2020-07-01] MEDS: PRENATAL VITAMINS W/ FOLIC ACID TABLET (FP) PO SCH (10:54)
[2020-07-01] MEDS: NICOTINE 14 MG/24 HOURS TOPICAL PATCH TD SCH (10:54)
[2020-07-01] MEDS: MELATONIN 5 MG TABLETS PO SCH (22:16)
[2020-07-01] MEDS: THIAMINE HCL 100 MG TABLET (FP) PO SCH (22:17)
[2020-07-01] MEDS: hydrOXYzine PAMOATE 25 MG CAPSULE (FP) PO PRN (22:20)
[2020-07-02] MEDS: diazePAM 5 MG TABLET PO PRN (02:38)
[2020-07-02] MEDS ORDERED: chlordiazePOXIDE HCL 10 MG CAPSULE PO SCH (05:00)
[2020-07-02] MEDS: diazePAM 5 MG TABLET PO SCH ×2 (05:42→18:21)
[2020-07-02] MEDS: cloNIDine HCL 0.1 MG TABLET PO PRN ×4 (05:43→23:36)
--- NOTE | 2020-07-02 09:33 | PN ---
[facility] CIWA - CIWA Score Nausea/Vomitin-Mild Nausea/No Vomiting Muscle Tremors: 1-None Visible, but [place] Anxiety: 1-Mildly Anxious Agitation: 0-Normal Activity Paroxysmal Sweats: No Perspiration Orientation: 0-Oriented Tacttile Disturbances: 0-None Auditory Disturbances: 0-None Visual Disturbances: 1-Very Mild Sensitivity Headache: 0-None Present CIWA-Ar Total Score: 4 S COWS - Scale Resting Pulse: 0= [place] 80 or Below Sweatin= Chills/Flushing Restless Observation: 0= Sits Still Pupil Size: 0= Normal to Room Light Bone or Joint Aches: 4=Acute Joint/Muscle Pain Runny Nose/ Eye Tearin= None GI Upset > 30mins: 0= None Tremor Observation of Outstretched Hands: 1= Tremor [place], Not Seen Yawning Observation: 0= None Anxiety or Irritability: 1=Feels Anxious/Irritable Goose Flesh Skin: 0=Smooth Skin COWS Score: 7 S Progress Note (SOAP) Subjective: 49 years old female was admitted on 06/28/20 for alcohol benzo opiate withdrawal sx management 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 feels better today ms chinchilla prefers to go to [facility] with [facility] who is a t 6N detox at the present time ms chinchilla requests to discuss aftercare with her "together in rehab" Objective: 07/02/20 09:34 Vital Signs - 24 hr 07/01/20 07/01/20 07/01/20 12:30 16:48 20:44 Temperature 97.1 F L 98.2 F 97.2 F L Pulse Rate 79 55 L 60 Respiratory 16 17 16 Rate Blood Pressure 107/78 118/70 119/73 O2 Sat by Pulse 96 96 Oximetry (%) 07/02/20 05:37 Temperature 97.2 F L Pulse Rate 50 L Respiratory 16 Rate Blood Pressure 110/67 O2 Sat by Pulse 100 Oximetry (%) Laboratory Tests 06/28/20 06/28/20 06/29/20 17:25 20:00 08:10 WBC RBC Hgb Hct MCV MCH MCHC RDW Plt Count MPV Sodium Potassium Chloride Carbon Dioxide Anion Gap BUN Creatinine Est GFR (CKD-EPI)AfAm Est GFR (CKD-EPI)NonAf Random Glucose Calcium Total Bilirubin AST ALT Alkaline Phosphatase Total Protein Albumin POC Urine HCG, Qual Negative Syphilis Serology Non-reactive COVID-19 ([facility]) Not detected 06/29/20 06/29/20 08:10 08:10 WBC 5.1 RBC 3.90 Hgb 11.9 Hct 35.9 MCV 92.0 MCH 30.5 D MCHC 33.1 RDW 13.9 D Plt Count 194 D MPV 8.1 Sodium 141 Potassium 3.9 Chloride 105 Carbon Dioxide 32 Anion Gap 4 L BUN 12.8 Creatinine 0.6 Est GFR (CKD-EPI)AfAm 123.18 Est GFR (CKD-EPI)NonAf 106.28 Random Glucose 85 Calcium 8.6 Total Bilirubin 0.3 AST 14 L ALT 15 Alkaline Phosphatase 83 Total Protein 6.0 L Albumin 2.9 L POC Urine HCG, Qual Syphilis Serology COVID-19 ([facility]) lab noted Assessment: 07/02/20 09:34 alcohol benzo opiate withdrawal Plan: valium and methadone regiments
[2020-07-02] MEDS ORDERED: METHADONE HCL 10 MG TABLET (FOR DETOX USE ONLY) PO ONE (10:00)
[2020-07-02] MEDS: NICOTINE 14 MG/24 HOURS TOPICAL PATCH TD SCH (10:24)
[2020-07-02] MEDS: PRENATAL VITAMINS W/ FOLIC ACID TABLET (FP) PO SCH (10:24)
[2020-07-02] MEDS: METHOCARBAMOL 500 MG TABLET PO PRN ×2 (10:30→22:19)
[2020-07-02] MEDS: hydrOXYzine PAMOATE 25 MG CAPSULE (FP) PO PRN ×3 (10:30→22:19)
[2020-07-02 21:28] VITALS: TEMP 97.1
[2020-07-02] MEDS: THIAMINE HCL 100 MG TABLET (FP) PO SCH (22:19)
[2020-07-02] MEDS: MELATONIN 5 MG TABLETS PO SCH (22:22)
[2020-07-03] MEDS ORDERED: chlordiazePOXIDE HCL 10 MG CAPSULE PO ONE (05:00)
[2020-07-03] MEDS ORDERED: METHADONE HCL 5 MG TABLET (FOR DETOX USE ONLY) PO ONE (06:00)
[2020-07-03] MEDS ORDERED: diazePAM 5 MG TABLET PO ONE (06:00)
[2020-07-03 06:12] VITALS: BP 113/77; PULSE 51
--- NOTE | 2020-07-03 06:24 | DS ---
[facility] Detox Discharge Summary Admission Date: 06/28/20 - History Additional Comments: pt denies complaints, states she is feeling well. AAO x3 , ambulating freely . Vital Signs - 24 hr 07/02/20 07/02/20 07/02/20 08:42 11:55 12:41 Temperature 97.1 F L 97.2 F L Pulse Rate 64 77 97 H Respiratory 18 18 20 Rate Blood Pressure 95/62 100/82 116/87 O2 Sat by Pulse Oximetry (%) 07/02/20 07/02/20 07/03/20 16:29 20:53 06:11 Temperature 97.5 F L 97.1 F L 97.1 F L Pulse Rate 75 87 51 L Respiratory 18 18 18 Rate Blood Pressure 126/74 100/75 113/77 O2 Sat by Pulse 98 100 Oximetry (%) - Physical Exam Results Vital Signs: Vital Signs Temperature 97.1 F L 07/03/20 06:11 Pulse Rate 51 L 07/03/20 06:11 Respiratory Rate 18 07/03/20 06:11 Blood Pressure 113/77 07/03/20 06:11 O2 Sat by Pulse Oximetry (%) 100 07/03/20 06:11 - Treatment Hospital Course: Detox Protocol Followed, Detoxed Safely, Discharged Condition Good - Medication Discharge Medications: Ambulatory Orders NK [No Known Home Medication] 12/15/19 - AMA Did Patient Leave Against Medical Advice: No
== END 2020-07-03 06:57 | disposition home or self-care (01) | DRG 773 ==
LOC: YASAS 15:29 → Y3N 18:53
PROVIDERS: ADMIT Allergy & Immunology; ATTEND Allergy & Immunology
PROC: HZ2ZZZZ Detoxification Services for Substance Abuse Treatment (ICD-10-PCS; principal; 2020-06-28)
DX: F11.23 Opioid dependence with withdrawal (principal); F10.230 Alcohol dependence with withdrawal, uncomplicated; F13.20 Sedative, hypnotic or anxiolytic dependence, uncomplicated; F14.20 Cocaine dependence, uncomplicated; F17.210 Nicotine dependence, cigarettes, uncomplicated; F19.24 Other psychoactive substance dependence with psychoactive substance-induced mood disorder; F43.10 Post-traumatic stress disorder, unspecified; G40.509 Epileptic seizures related to external causes, not intractable, without status epilepticus; K21.9 Gastro-esophageal reflux disease without esophagitis; I73.00 Raynaud's syndrome without gangrene; M41.9 Scoliosis, unspecified; M54.5 Low back pain; G89.29 Other chronic pain; Z91.19 Patient's noncompliance with other medical treatment and regimen; Z56.0 Unemployment, unspecified
CPT/HCPCS: 36415; 80053; 81025; 85027; 86780; 93005; 93010; J0735; U0003

== ENCOUNTER 2021-01-03 17:00 | Inpatient (IN) | payer OTHER ==
[2021-01-03] MEDS ORDERED: BISMUTH SUBSALICYLATE 524 MG/30 ML UD PO PRN (20:14)
[2021-01-03] MEDS ORDERED: MENTHOL/PHENOL 1 EACH UD MM PRN (20:14)
[2021-01-03] MEDS ORDERED: NICOTINE POLACRILEX 2 MG GUM BUC PRN (20:14)
[2021-01-03] MEDS ORDERED: IBUPROFEN 400 MG TABLET (FP) PO PRN (20:14)
[2021-01-03] MEDS ORDERED: ONDANSETRON *ODT* 4 MG TABLET SL PRN (20:14)
[2021-01-03] MEDS ORDERED: MAG HYDROX/AL HYDROX/SIMETH 30 ML UNIT-DOSE CUP PO PRN (20:14)
[2021-01-03] MEDS ORDERED: MAGNESIUM HYDROX 2400MG/30ML ORAL SUSPENSION 30 ML CUP PO PRN (20:14)
[2021-01-03] MEDS ORDERED: ACETAMINOPHEN 325 MG TABLET (FP) PO PRN ×2 (20:14)
[2021-01-03] MEDS ORDERED: MAGNESIUM CITRATE 300 ML BOTTLE PO PRN (20:14)
[2021-01-03 20:56] VITALS: BMI 26.2
[2021-01-03] MEDS: NICOTINE 14 MG/24 HOURS TOPICAL PATCH TD SCH (22:34)
[2021-01-03] MEDS ORDERED: cloNIDine HCL 0.1 MG TABLET ONE (22:36)
[2021-01-03] MEDS ORDERED: diazePAM 5 MG TABLET ONE (22:36)
[2021-01-03] MEDS: diazePAM 5 MG TABLET PO PRN (22:37)
[2021-01-03] MEDS: cloNIDine HCL 0.1 MG TABLET PO SCH (22:37)
[2021-01-03] MEDS: THIAMINE HCL 100 MG TABLET (FP) PO SCH (22:42)
[2021-01-03] MEDS: diazePAM 5 MG TABLET PO SCH (22:43)
[2021-01-04] MEDS: MELATONIN 5 MG TABLETS PO SCH ×2 (00:23→22:43)
[2021-01-04] MEDS: hydrOXYzine PAMOATE 25 MG CAPSULE (FP) PO SCH ×6 (00:23→22:43)
[2021-01-04] MEDS: diazePAM 5 MG TABLET PO SCH ×4 (06:00→22:42)
[2021-01-04] MEDS ORDERED: METHADONE HCL 10 MG TABLET PO SCH (09:45)
[2021-01-04] MEDS ORDERED: METHADONE 40 MG, METHADONE 30 MG PO ONE (10:00)
[2021-01-04] MEDS ORDERED: METHADONE HCL 10 MG TABLET ONE (10:22)
[2021-01-04] MEDS ORDERED: METHADONE HCL 40 MG DISPERSABLE TABLET ONE (10:22)
[2021-01-04] MEDS: PRENATAL VITAMINS W/ FOLIC ACID TABLET (FP) PO SCH (10:24)
[2021-01-04] MEDS: NICOTINE 14 MG/24 HOURS TOPICAL PATCH TD SCH (10:24)
[2021-01-04] MEDS: cloNIDine HCL 0.1 MG TABLET PO SCH ×3 (10:26→22:42)
[2021-01-04 12:00] LABS: HEMATOCRIT 37.6 % (32.4-45.2); HEMOGLOBIN 12.5 GM/dL (10.7-15.3); MCH 31.9 pg (25.7-33.7); MCHC 33.3 g/dl (32.0-36.0); MEAN CELL VOLUME 95.7 fl (80-96); MEAN PLT VOLUME 8.5 fl (7.5-11.1); PLATELET COUNT 202 K/MM3 (134-434); RBC 3.93 M/mm3 (3.60-5.2); RDW 12.8 % (11.6-15.6); WHITE BLOOD COUNT 5.8 K/mm3 (4.0-10.0)
[2021-01-04 12:26] LABS: POTASSIUM 4.1 mmol/L (3.5-5.1)
[2021-01-04 12:45] LABS: CALCIUM 8.7 mg/dL (8.5-10.1)
[2021-01-04 12:46] LABS: ALBUMIN 3.1 g/dl (3.4-5.0); BLOOD UREA NITROGEN 14.5 mg/dL (7-18)
[2021-01-04 12:49] LABS: CREATININE 0.7 mg/dL (0.55-1.3)
[2021-01-04 12:50] LABS: BILIRUBIN,TOTAL 0.6 mg/dL (0.2-1); TOT PROT 6.2 g/dl (6.4-8.2)
[2021-01-04] MEDS: diazePAM 5 MG TABLET PO PRN (13:06)
[2021-01-04] MEDS: THIAMINE HCL 100 MG TABLET (FP) PO SCH (22:43)
[2021-01-04] MEDS: SUVOREXANT 10 MG TABLET PO PRN (22:46)
[2021-01-05] MEDS: diazePAM 5 MG TABLET PO PRN ×3 (01:44→18:11)
[2021-01-05] MEDS ORDERED: METHADONE HCL 10 MG TABLET ONE (04:27)
[2021-01-05] MEDS ORDERED: METHADONE HCL 40 MG DISPERSABLE TABLET ONE (04:28)
[2021-01-05] MEDS: METHADONE 40 MG, METHADONE 30 MG PO SCH (05:51)
[2021-01-05] MEDS: diazePAM 5 MG TABLET PO SCH ×3 (05:51→22:23)
[2021-01-05] MEDS: cloNIDine HCL 0.1 MG TABLET PO SCH ×3 (05:51→22:23)
[2021-01-05] MEDS: hydrOXYzine PAMOATE 25 MG CAPSULE (FP) PO SCH ×5 (05:52→22:24)
[2021-01-05] MEDS: PRENATAL VITAMINS W/ FOLIC ACID TABLET (FP) PO SCH (10:09)
[2021-01-05] MEDS: NICOTINE 14 MG/24 HOURS TOPICAL PATCH TD SCH (10:10)
[2021-01-05] MEDS: SUVOREXANT 10 MG TABLET PO PRN (22:22)
[2021-01-05] MEDS: MELATONIN 5 MG TABLETS PO SCH (22:23)
[2021-01-05] MEDS: THIAMINE HCL 100 MG TABLET (FP) PO SCH (22:23)
[2021-01-06] MEDS: diazePAM 5 MG TABLET PO PRN ×4 (02:45→20:22)
[2021-01-06] MEDS ORDERED: METHADONE HCL 40 MG DISPERSABLE TABLET ONE (06:33)
[2021-01-06] MEDS ORDERED: METHADONE HCL 10 MG TABLET ONE (06:33)
[2021-01-06] MEDS: METHADONE 40 MG, METHADONE 30 MG PO SCH (06:35)
[2021-01-06] MEDS: hydrOXYzine PAMOATE 25 MG CAPSULE (FP) PO SCH ×5 (06:36→22:25)
[2021-01-06] MEDS: diazePAM 5 MG TABLET PO SCH ×2 (06:36→18:15)
[2021-01-06] MEDS: cloNIDine HCL 0.1 MG TABLET PO SCH ×3 (06:36→22:25)
[2021-01-06] MEDS: NICOTINE 14 MG/24 HOURS TOPICAL PATCH TD SCH (10:25)
[2021-01-06] MEDS: PRENATAL VITAMINS W/ FOLIC ACID TABLET (FP) PO SCH (10:25)
[2021-01-06] MEDS: METHOCARBAMOL 500 MG TABLET PO PRN (18:12)
[2021-01-06] MEDS: THIAMINE HCL 100 MG TABLET (FP) PO SCH (22:24)
[2021-01-06] MEDS: MELATONIN 5 MG TABLETS PO SCH (22:24)
[2021-01-06] MEDS: SUVOREXANT 10 MG TABLET PO PRN (22:26)
[2021-01-07] MEDS ORDERED: METHADONE HCL 10 MG TABLET ONE (04:02)
[2021-01-07] MEDS ORDERED: METHADONE HCL 40 MG DISPERSABLE TABLET ONE (04:02)
[2021-01-07] MEDS ORDERED: diazePAM 5 MG TABLET PO ONE (06:00)
[2021-01-07] MEDS: hydrOXYzine PAMOATE 25 MG CAPSULE (FP) PO SCH ×4 (06:11→18:27)
[2021-01-07] MEDS: cloNIDine HCL 0.1 MG TABLET PO SCH ×3 (06:11→22:46)
[2021-01-07] MEDS: METHADONE 40 MG, METHADONE 30 MG PO SCH (06:11)
[2021-01-07] MEDS: NICOTINE 14 MG/24 HOURS TOPICAL PATCH TD SCH (10:19)
[2021-01-07] MEDS: PRENATAL VITAMINS W/ FOLIC ACID TABLET (FP) PO SCH (10:19)
[2021-01-07] MEDS: METHOCARBAMOL 500 MG TABLET PO PRN (18:27)
[2021-01-07] MEDS ORDERED: SUVOREXANT 10 MG TABLET PO PRN (22:05)
[2021-01-07] MEDS: THIAMINE HCL 100 MG TABLET (FP) PO SCH (22:46)
[2021-01-07] MEDS: MELATONIN 5 MG TABLETS PO SCH (22:48)
[2021-01-08] MEDS: hydrOXYzine PAMOATE 25 MG CAPSULE (FP) PO SCH (00:02)
[2021-01-08] MEDS: METHOCARBAMOL 500 MG TABLET PO PRN ×2 (01:11→06:17)
[2021-01-08] MEDS ORDERED: METHADONE HCL 10 MG TABLET ONE (05:20)
[2021-01-08] MEDS ORDERED: METHADONE HCL 40 MG DISPERSABLE TABLET ONE (05:20)
[2021-01-08] MEDS: METHADONE 40 MG, METHADONE 30 MG PO SCH (06:18)
[2021-01-08] MEDS: cloNIDine HCL 0.1 MG TABLET PO SCH (06:18)
[2021-01-08 09:57] VITALS: BP 113/74; PULSE 65; TEMP 96.1
== END 2021-01-08 10:55 | disposition home or self-care (01) | DRG 773 ==
LOC: YASAS 17:00 → UNDOADMIN 20:37 → Y6N 20:37
PROVIDERS: ADMIT Allergy & Immunology; ATTEND Allergy & Immunology
PROC: HZ2ZZZZ Detoxification Services for Substance Abuse Treatment (ICD-10-PCS; principal; 2021-01-03)
DX: F11.23 Opioid dependence with withdrawal (principal); F10.230 Alcohol dependence with withdrawal, uncomplicated; F13.20 Sedative, hypnotic or anxiolytic dependence, uncomplicated; F17.210 Nicotine dependence, cigarettes, uncomplicated; F19.282 Other psychoactive substance dependence with psychoactive substance-induced sleep disorder; F19.24 Other psychoactive substance dependence with psychoactive substance-induced mood disorder; F32.9 Major depressive disorder, single episode, unspecified; F43.10 Post-traumatic stress disorder, unspecified; I10 Essential (primary) hypertension; I73.00 Raynaud's syndrome without gangrene; K21.9 Gastro-esophageal reflux disease without esophagitis; M41.9 Scoliosis, unspecified; M54.5 Low back pain; G89.29 Other chronic pain; Z62.810 Personal history of physical and sexual abuse in childhood; Z91.410 Personal history of adult physical and sexual abuse; Z56.0 Unemployment, unspecified; Z59.0 Homelessness
CPT/HCPCS: 36415; 80053; 81025; 85027; 86780; C9803; J0735; U0003

== ENCOUNTER 2021-03-01 17:25 | Inpatient (IN) | payer OTHER ==
[2021-03-01 19:06] VITALS: BMI 26.0
[2021-03-01] MEDS ORDERED: IBUPROFEN 400 MG TABLET (FP) PO PRN (20:52)
[2021-03-01] MEDS ORDERED: ONDANSETRON *ODT* 4 MG TABLET SL PRN (20:52)
[2021-03-01] MEDS ORDERED: MAG HYDROX/AL HYDROX/SIMETH 30 ML UNIT-DOSE CUP PO PRN (20:52)
[2021-03-01] MEDS ORDERED: MENTHOL/PHENOL 1 EACH UD MM PRN (20:52)
[2021-03-01] MEDS ORDERED: BISMUTH SUBSALICYLATE 524 MG/30 ML UD PO PRN (20:52)
[2021-03-01] MEDS ORDERED: MAGNESIUM CITRATE 300 ML BOTTLE PO PRN (20:52)
[2021-03-01] MEDS ORDERED: NICOTINE POLACRILEX 2 MG GUM BUC PRN (20:52)
[2021-03-01] MEDS ORDERED: MAGNESIUM HYDROX 2400MG/30ML ORAL SUSPENSION 30 ML CUP PO PRN (20:52)
[2021-03-01] MEDS ORDERED: ACETAMINOPHEN 325 MG TABLET (FP) PO PRN ×2 (20:52)
[2021-03-01] MEDS ORDERED: diazePAM 5 MG TABLET ONE (22:17)
[2021-03-01] MEDS: THIAMINE HCL 100 MG TABLET (FP) PO SCH (22:21)
[2021-03-01] MEDS: diazePAM 5 MG TABLET PO SCH (22:21)
[2021-03-01] MEDS: MELATONIN 5 MG TABLETS PO SCH (22:22)
[2021-03-02] MEDS ORDERED: diazePAM 5 MG TABLET ONE ×2 (04:04→07:33)
[2021-03-02] MEDS: diazePAM 5 MG TABLET PO SCH ×4 (04:09→22:09)
[2021-03-02] MEDS: diazePAM 5 MG TABLET PO PRN ×3 (07:35→19:32)
[2021-03-02] MEDS ORDERED: METHADONE HCL 10 MG TABLET PO SCH (09:00)
[2021-03-02 12:14] LABS: HEMATOCRIT 38.2 % (32.4-45.2); HEMOGLOBIN 12.8 GM/dL (10.7-15.3); MCH 31.7 pg (25.7-33.7); MCHC 33.6 g/dl (32.0-36.0); MEAN CELL VOLUME 94.5 fl (80-96); MEAN PLT VOLUME 9.2 fl (7.5-11.1); PLATELET COUNT 198 K/MM3 (134-434); RBC 4.04 M/mm3 (3.60-5.2); RDW 13.1 % (11.6-15.6); WHITE BLOOD COUNT 7.4 K/mm3 (4.0-10.0)
[2021-03-02 12:27] LABS: CALCIUM 8.8 mg/dL (8.5-10.1)
[2021-03-02 12:28] LABS: ALBUMIN 3.5 g/dl (3.4-5.0); BLOOD UREA NITROGEN 12.5 mg/dL (7-18)
[2021-03-02 12:31] LABS: CREATININE 0.9 mg/dL (0.55-1.3)
[2021-03-02 12:32] LABS: BILIRUBIN,TOTAL 0.3 mg/dL (0.2-1)
[2021-03-02 12:33] LABS: TOT PROT 6.7 g/dl (6.4-8.2)
[2021-03-02] MEDS ORDERED: METHADONE HCL 10 MG TABLET ONE (13:02)
[2021-03-02] MEDS ORDERED: METHADONE HCL 40 MG DISPERSABLE TABLET ONE (13:02)
[2021-03-02] MEDS: NICOTINE 14 MG/24 HOURS TOPICAL PATCH TD SCH (13:14)
[2021-03-02] MEDS: PRENATAL VITAMINS W/ FOLIC ACID TABLET (FP) PO SCH (13:14)
[2021-03-02] MEDS: METHOCARBAMOL 500 MG TABLET PO PRN ×2 (13:14→19:35)
[2021-03-02] MEDS: METHADONE 40 MG, METHADONE 30 MG PO SCH (13:15)
[2021-03-02] MEDS ORDERED: SUVOREXANT 5 MG TABLET PO PRN (22:00)
[2021-03-02] MEDS: MELATONIN 5 MG TABLETS PO SCH (22:09)
[2021-03-02] MEDS: THIAMINE HCL 100 MG TABLET (FP) PO SCH (22:09)
[2021-03-03] MEDS: diazePAM 5 MG TABLET PO PRN ×4 (00:28→20:30)
[2021-03-03] MEDS: METHOCARBAMOL 500 MG TABLET PO PRN ×3 (03:25→18:32)
[2021-03-03] MEDS ORDERED: METHADONE HCL 10 MG TABLET ONE (03:55)
[2021-03-03] MEDS ORDERED: METHADONE HCL 40 MG DISPERSABLE TABLET ONE (03:55)
[2021-03-03] MEDS: diazePAM 5 MG TABLET PO SCH ×3 (05:47→22:13)
[2021-03-03] MEDS: METHADONE 40 MG, METHADONE 30 MG PO SCH (05:48)
[2021-03-03] MEDS: NICOTINE 14 MG/24 HOURS TOPICAL PATCH TD SCH (10:50)
[2021-03-03] MEDS: PRENATAL VITAMINS W/ FOLIC ACID TABLET (FP) PO SCH (10:50)
[2021-03-03] MEDS: MELATONIN 5 MG TABLETS PO SCH (22:14)
[2021-03-03] MEDS: THIAMINE HCL 100 MG TABLET (FP) PO SCH (22:14)
[2021-03-04] MEDS: diazePAM 5 MG TABLET PO PRN ×2 (01:33→09:05)
[2021-03-04] MEDS: METHOCARBAMOL 500 MG TABLET PO PRN (03:52)
[2021-03-04] MEDS ORDERED: METHADONE HCL 10 MG TABLET ONE (04:40)
[2021-03-04] MEDS ORDERED: METHADONE HCL 40 MG DISPERSABLE TABLET ONE (04:41)
[2021-03-04] MEDS: METHADONE 40 MG, METHADONE 30 MG PO SCH (05:38)
[2021-03-04] MEDS ORDERED: diazePAM 5 MG TABLET PO SCH (06:00)
[2021-03-04 06:10] LABS: SARS-CoV-2 NAA Not Detected (Not Detected)
[2021-03-04] MEDS: PRENATAL VITAMINS W/ FOLIC ACID TABLET (FP) PO SCH (09:05)
[2021-03-04] MEDS: NICOTINE 14 MG/24 HOURS TOPICAL PATCH TD SCH (09:06)
[2021-03-04 09:34] VITALS: BP 117/83; PULSE 66; TEMP 96.9
[2021-03-05] MEDS ORDERED: diazePAM 5 MG TABLET PO ONE (06:00)
== END 2021-03-04 11:33 | disposition left against medical advice (07) | DRG 770 ==
LOC: YASAS 17:25 → Y3N 03-02 13:26
PROVIDERS: ADMIT Allergy & Immunology; ATTEND Allergy & Immunology
PROC: HZ2ZZZZ Detoxification Services for Substance Abuse Treatment (ICD-10-PCS; principal; 2021-03-02)
DX: F10.230 Alcohol dependence with withdrawal, uncomplicated (principal); F11.20 Opioid dependence, uncomplicated; F13.20 Sedative, hypnotic or anxiolytic dependence, uncomplicated; F14.20 Cocaine dependence, uncomplicated; F17.210 Nicotine dependence, cigarettes, uncomplicated; F41.9 Anxiety disorder, unspecified; F43.10 Post-traumatic stress disorder, unspecified; F32.9 Major depressive disorder, single episode, unspecified; F19.282 Other psychoactive substance dependence with psychoactive substance-induced sleep disorder; F19.24 Other psychoactive substance dependence with psychoactive substance-induced mood disorder; G47.00 Insomnia, unspecified; I10 Essential (primary) hypertension; I73.00 Raynaud's syndrome without gangrene; K21.9 Gastro-esophageal reflux disease without esophagitis; M41.9 Scoliosis, unspecified; M54.5 Low back pain; G89.29 Other chronic pain; H91.92 Unspecified hearing loss, left ear; Z62.810 Personal history of physical and sexual abuse in childhood; Z91.410 Personal history of adult physical and sexual abuse; Z56.0 Unemployment, unspecified; Z59.0 Homelessness
CPT/HCPCS: 36415; 80053; 81025; 82962; 85027; 86780; 93005; 93010; C9803; U0003; U0005

== ENCOUNTER 2021-06-09 15:40 | Inpatient (IN) | payer OTHER ==
[2021-06-09 17:13] VITALS: BMI 25.1
[2021-06-09] MEDS ORDERED: MAGNESIUM CITRATE 300 ML BOTTLE PO PRN (18:52)
[2021-06-09] MEDS ORDERED: MENTHOL/PHENOL 1 EACH UD MM PRN (18:52)
[2021-06-09] MEDS ORDERED: BISMUTH SUBSALICYLATE 524 MG/30 ML PO PRN (18:52)
[2021-06-09] MEDS ORDERED: diazePAM 5 MG TABLET PO ONE (18:52)
[2021-06-09] MEDS ORDERED: METHOCARBAMOL 500 MG TABLET PO PRN (18:52)
[2021-06-09] MEDS ORDERED: NICOTINE POLACRILEX 2 MG GUM BUC PRN (18:52)
[2021-06-09] MEDS ORDERED: MAGNESIUM HYDROX 2400MG/30ML ORAL SUSPENSION 30 ML CUP PO PRN (18:52)
[2021-06-09] MEDS ORDERED: ACETAMINOPHEN 325 MG TABLET (FP) PO PRN ×2 (18:52)
[2021-06-09] MEDS ORDERED: ONDANSETRON *ODT* 4 MG TABLET SL PRN (18:52)
[2021-06-09] MEDS ORDERED: MAG HYDROX/AL HYDROX/SIMETH 30 ML UNIT-DOSE CUP PO PRN (18:52)
[2021-06-09] MEDS ORDERED: methaDONE HCL 10 MG TABLET PO ONE (18:58)
[2021-06-09] MEDS: cloNIDine HCL 0.1 MG TABLET PO PRN (20:50)
[2021-06-09] MEDS: IBUPROFEN 400 MG TABLET (FP) PO PRN (20:53)
[2021-06-09] MEDS ORDERED: MIRTAZAPINE 15 MG TABLET (FP) PO ONE (20:55)
[2021-06-09] MEDS: THIAMINE HCL 100 MG TABLET (FP) PO SCH (22:57)
[2021-06-09] MEDS: diazePAM 5 MG TABLET PO SCH (22:57)
[2021-06-10] MEDS: diazePAM 5 MG TABLET PO PRN ×3 (03:48→20:43)
[2021-06-10] MEDS: diazePAM 5 MG TABLET PO SCH ×4 (06:15→22:20)
[2021-06-10] MEDS: IBUPROFEN 400 MG TABLET (FP) PO PRN ×2 (06:18→22:19)
[2021-06-10] MEDS ORDERED: methaDONE HCL 10 MG TABLET ONE (09:10)
[2021-06-10] MEDS ORDERED: methaDONE HCL 40 MG DISPERSABLE TABLET ONE (09:11)
[2021-06-10] MEDS ORDERED: methaDONE 40 MG, methaDONE 20 MG PO ONE (09:15)
[2021-06-10] MEDS: PRENATAL VITAMINS W/ FOLIC ACID TABLET (FP) PO SCH (09:46)
[2021-06-10] MEDS: NICOTINE 21 MG/24 HOURS TOPICAL PATCH TD SCH (09:48)
[2021-06-10] MEDS ORDERED: methaDONE HCL 10 MG TABLET PO ONE (10:00)
[2021-06-10] MEDS: cloNIDine HCL 0.1 MG TABLET PO PRN ×3 (12:05→23:17)
[2021-06-10 17:14] LABS: HEMATOCRIT 38.4 % (32.4-45.2); HEMOGLOBIN 12.7 GM/dL (10.7-15.3); MCH 30.3 pg (25.7-33.7); MEAN CELL VOLUME 91.9 fl (80-96); MEAN PLT VOLUME 8.7 fl (7.5-11.1); PLATELET COUNT 211 10^3/uL (134-434); RBC 4.18 M/mm3 (3.60-5.2); RDW 13.7 % (11.6-15.6); WHITE BLOOD COUNT 6.5 K/mm3 (4.0-10.0)
[2021-06-10 17:20] LABS: BLOOD UREA NITROGEN 17.4 mg/dL (7-18); CALCIUM 8.6 mg/dL (8.5-10.1)
[2021-06-10 17:21] LABS: ALBUMIN 3.2 g/dl (3.4-5.0)
[2021-06-10 17:24] LABS: CREATININE 0.8 mg/dL (0.55-1.3)
[2021-06-10 17:25] LABS: BILIRUBIN,TOTAL 0.2 mg/dL (0.2-1); TOT PROT 6.1 g/dl (6.4-8.2)
[2021-06-10] MEDS: SUVOREXANT 10 MG TABLET PO PRN (22:19)
[2021-06-10] MEDS: THIAMINE HCL 100 MG TABLET (FP) PO SCH (22:20)
[2021-06-11] MEDS: diazePAM 5 MG TABLET PO PRN ×2 (00:51→09:35)
[2021-06-11] MEDS ORDERED: methaDONE HCL 10 MG TABLET ONE (04:18)
[2021-06-11] MEDS ORDERED: methaDONE HCL 40 MG DISPERSABLE TABLET ONE (04:19)
[2021-06-11] MEDS: IBUPROFEN 400 MG TABLET (FP) PO PRN ×2 (05:43→21:54)
[2021-06-11] MEDS: diazePAM 5 MG TABLET PO SCH ×3 (05:43→21:54)
[2021-06-11] MEDS: cloNIDine HCL 0.1 MG TABLET PO PRN ×3 (05:43→19:51)
[2021-06-11] MEDS: methaDONE 40 MG, methaDONE 20 MG PO SCH (05:44)
[2021-06-11] MEDS ORDERED: methaDONE HCL 10 MG TABLET PO SCH (06:00)
[2021-06-11] MEDS ORDERED: hydrOXYzine PAMOATE 50 MG CAPSULE (FP) PO ONE (09:32)
[2021-06-11] MEDS: PRENATAL VITAMINS W/ FOLIC ACID TABLET (FP) PO SCH (10:21)
[2021-06-11] MEDS: NICOTINE 21 MG/24 HOURS TOPICAL PATCH TD SCH (10:21)
[2021-06-11] MEDS ORDERED: diazePAM 5 MG TABLET PO PRN ×3 (16:14→18:52)
[2021-06-11] MEDS: SUVOREXANT 10 MG TABLET PO PRN (21:52)
[2021-06-11] MEDS: THIAMINE HCL 100 MG TABLET (FP) PO SCH (21:53)
[2021-06-12] MEDS: diazePAM 5 MG TABLET PO PRN ×3 (01:30→16:11)
[2021-06-12] MEDS ORDERED: methaDONE HCL 10 MG TABLET ONE (04:16)
[2021-06-12] MEDS ORDERED: methaDONE HCL 40 MG DISPERSABLE TABLET ONE (04:16)
[2021-06-12] MEDS: methaDONE 40 MG, methaDONE 20 MG PO SCH (06:06)
[2021-06-12] MEDS: diazePAM 5 MG TABLET PO SCH ×2 (06:07→18:48)
[2021-06-12] MEDS: cloNIDine HCL 0.1 MG TABLET PO PRN ×3 (07:36→22:11)
[2021-06-12] MEDS: PRENATAL VITAMINS W/ FOLIC ACID TABLET (FP) PO SCH (10:09)
[2021-06-12] MEDS: NICOTINE 21 MG/24 HOURS TOPICAL PATCH TD SCH (10:09)
[2021-06-12] MEDS: IBUPROFEN 400 MG TABLET (FP) PO PRN ×2 (10:15→18:47)
[2021-06-12] MEDS: THIAMINE HCL 100 MG TABLET (FP) PO SCH (22:11)
[2021-06-12] MEDS: SUVOREXANT 10 MG TABLET PO PRN (22:12)
[2021-06-13] MEDS ORDERED: methaDONE HCL 10 MG TABLET ONE (05:02)
[2021-06-13] MEDS ORDERED: methaDONE HCL 40 MG DISPERSABLE TABLET ONE (05:02)
[2021-06-13] MEDS ORDERED: diazePAM 5 MG TABLET PO ONE (06:00)
[2021-06-13] MEDS: methaDONE 40 MG, methaDONE 20 MG PO SCH (06:08)
[2021-06-13 08:46] VITALS: BP 100/63; PULSE 74; TEMP 97.2
== END 2021-06-13 09:02 | disposition home or self-care (01) | DRG 773 ==
LOC: YASAS 15:40 → Y6N 19:36
PROVIDERS: ADMIT Allergy & Immunology; ATTEND Allergy & Immunology
PROC: HZ2ZZZZ Detoxification Services for Substance Abuse Treatment (ICD-10-PCS; principal; 2021-06-09)
DX: F10.230 Alcohol dependence with withdrawal, uncomplicated (principal); F11.20 Opioid dependence, uncomplicated; F14.20 Cocaine dependence, uncomplicated; F13.230 Sedative, hypnotic or anxiolytic dependence with withdrawal, uncomplicated; I73.00 Raynaud's syndrome without gangrene; M17.12 Unilateral primary osteoarthritis, left knee; M54.5 Low back pain; G89.29 Other chronic pain; Z62.810 Personal history of physical and sexual abuse in childhood; Z91.410 Personal history of adult physical and sexual abuse
CPT/HCPCS: 36415; 80053; 81025; 85027; 86780; C9803; J0735; U0003; U0005